=== PATIENT | male | born 1985 | race African-American/Black ===

== ENCOUNTER 2019-05-16 23:06 | Emergency (ER) | payer OTHER ==
[~2019-05-16] VITALS: Ht 170.2 cm; Wt 68.0 kg
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
[2019-05-16 23:22] VITALS: BP 123/83
[2019-05-16] MEDS ORDERED: Tetanus/Diptheria/Pertussis IM ONE (23:30)
[2019-05-16] MEDS ORDERED: HYDROmorphone 1mg/ml Carpuject IM ONE (23:30)
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
[2019-05-16] MEDS ORDERED: IBUPROFEN600 MG ORAL (23:40)
[2019-05-16] MEDS ORDERED: HYDROCODON-ACE1 EA15 ORAL (23:40)
[2019-05-16] MEDS ORDERED: Neosporin Oint Ud Pkt TOPIC ONE (23:45)
[2019-05-16] MEDS ORDERED: Cephalexin 500mg cap ORAL ONE (23:45)
--- NOTE | 2019-05-16 23:45 | NUR ---
ED Nurse Note: PAtient cleared for discharge by ERMD , patient has no s/s of acute distress, patient verbalized understanding of discharge instructions. Patient ID band removed. Patient departed with all belongings accompanied by his friend.
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
== END 2019-05-16 23:50 | disposition home or self-care (01) ==
LOC: EMR 23:50
DX: S63.501A Unspecified sprain of right wrist, initial encounter (principal); S60.221A Contusion of right hand, initial encounter; Y04.8XXA Assault by other bodily force, initial encounter; Z23 Encounter for immunization
CPT/HCPCS: 29125; 73110; 73130; 90471; 90715; 96372; J1170; Z7502; 99284